=== PATIENT | female | born 1990 | race Caucasian/White ===

== ENCOUNTER 2021-08-21 07:16 | Emergency (ER) | payer OTHER ==
[2021-08-21] MEDS ORDERED: Ketorolac 15 MG/ML SDV IM ONE (07:35)
[2021-08-21] MEDS ORDERED: traMADol 50 MG Tab PO ONE (07:54)
--- NOTE | 2021-08-21 07:57 | EDM.PDOC ---
ED HPI GENERAL MEDICAL PROBLEM - General Chief Complaint: General Stated Complaint: LFT SHOULDER PAIN Time Seen by Provider: 08/21/21 07:34 - History of Present Illness INITIAL COMMENTS - FREE TEXT/NARRATIVE: CHIEF COMPLAINT(S): Neck pain HISTORY OF PRESENT ILLNESS: This is a 31-year-old woman without any significant past medical history who comes to the emergency department with a chief complaint of a neck pain. The patient states that for approximately 1 year she has been experiencing pain on the left side of her neck however it is not been exacerbated over the last 2 days. She states that she lifted heavy stuff and that may have exacerbated the pain. She states that the pain is located on the left side of her neck and next to her left shoulder blade. She states that it feels tight. She denies any neck injury or back injury. She states that she rates her pain as 10 out of 10 not associate with any numbness, tingling, weakness, bowel incontinence, urinary incontinence or saddle anesthesia. She states that she was seen in [place] for this and had multiple imaging which did not reveal any abnormalities of her neck and then was seen at [facility] and was given Flexeril and meloxicam all of which did not help. She states that she does not know what else to do. She denies any relieving factors and states that the pain is exacerbated by movement. REVIEW OF SYSTEMS: Constitutional: Denies fever, chills. Eyes: Denies eye pain Ears, Nose, Mouth, & Throat: Denies earache Cardiovascular: Denies chest pain Respiratory: Denies shortness of breath Gastrointestinal: Denies bowel incontinence, nausea, vomiting, diarrhea, hematochezia. Genitourinary: Denies hematuria, urinary incontinence Skin:Denies a rash MSK: Positive for left-sided neck and back pain Neurological: Denies blurred vision, numbness, tingling, weakness Psychiatric: Denies depression PAST MEDICAL HISTORY: As per history of present illness and as reviewed below otherwise noncontributory. SURGICAL HISTORY: As per history of present illness and as reviewed below otherwise noncontributory. SOCIAL HISTORY: As per history of present illness and as reviewed below otherwise noncontributory. FAMILY HISTORY: As per history of present illness and as reviewed below otherwise noncontributory. EXAMINATION OF ORGAN SYSTEMS/BODY AREAS: Constitutional: Blood pressure is 123/80, heart rate 92, respiratory rate 17 with an oxygen saturation of 100% on room air. Temperature 36.4 General: Young woman who does not appear to be in acute distress Psychiatric: Appropriate mood and affect. Eyes: No scleral icterus or conjunctival erythema ENMT: Moist mucous membranes. No pharyngeal erythema no stridor, drooling, trismus. Neck is supple and nontender. No neck masses. Cardiovascular: Regular, rate, and rhythm. No gallops, murmurs, or rubs. Respiratory: Lungs clear to auscultation bilaterally. No wheezes, rales, or rhonchi. Musculoskeletal: There is left paracervical muscle tenderness and left trapezius/scapular muscle tenderness. No midline cervical, thoracic, or lumbar tenderness Skin: No lesions or abrasions. Neurological: Alert, GCS 15 dictating machine mechanic strength was equal bilaterally. Sensation distally intact MEDICAL DECISION MAKING AND COURSE IN THE ED WITH INTERPRETATION/REVIEW OF DIAGNOSTIC STUDIES: This is a 31-year-old woman with a past medical history of what appears to be left-sided chronic neck pain who comes to the emergency department with acute exacerbation of her neck pain. At this time given that she has had outpatient imaging before I do not believe any further imaging is indicated given that there is no acute injury. There are no red flag symptoms. We will provide the patient with tramadol and Toradol here for pain relief and I did discuss symptomatic treatment at home. She was given strict return precautions. The patient was amenable to discharge and had no further questions DISPOSITION: The patient was discharged home in stable condition. The patient will follow up with pcp within 3-5 days CONDITION: fair PROCEDURES: None FINAL IMPRESSION(S)/DIAGNOSES: 1. Acute neck strain Dominguez Blevins M.D. left should/neck Pain Score (Numeric/FACES): 10 - Related Data Allergies Allergy/AdvReac Type Severity Reaction Status Date / Time No Known Allergies Allergy Verified 08/22/21 02:26 Home Meds: Home Meds Diclofenac Sodium 50 mg PO TID 08/21/21 [History] Metaxalone 800 mg PO TID 08/21/21 [History] traMADol HCl [Tramadol HCl] 50 mg PO TID PRN #9 tablet 08/21/21 [Rx] Lidocaine 5% [Lidoderm 5%] 1 patch TOP DAILY PRN #7 patch 08/22/21 [Rx] Past Medical History - Past Health History Medical/Surgical History: Denies Medical/Surgical History - Infectious Disease History Infectious Disease History: Reports: None Social & Family History - Family History Family Medical History: No Pertinent Family History - Tobacco Use Tobacco Use Status *Q: Former Tobacco User Used Tobacco, but Quit: Yes Month/Year Tobacco Last Used: 2004 - Caffeine Use Caffeine Use: Reports: Coffee - Recreational Drug Use Recreational Drug Use: No ED ROS GENERAL - Review of Systems Review Of Systems: See Below ED EXAM, GENERAL - Physical Exam Exam: See Below Course - Vital Signs Last Recorded V/S: Last Vital Signs Temp 36.4 C 08/21/21 08:02 Pulse 75 08/21/21 08:02 Resp 16 08/21/21 08:02 BP 118/70 08/21/21 08:02 Pulse Ox 99 08/21/21 08:02 - Orders/Labs/Meds Meds: Medications Discontinued Medications Generic Name Dose Route Start Last Admin Trade Name Freq PRN Reason Stop Dose Admin Ketorolac Tromethamine 30 mg 08/21/21 07:35 08/21/21 07:53 Ketorolac 15 Mg/Ml Sdv IM 08/21/21 07:36 30 mg ONETIME ONE Administration Tramadol HCl 50 mg 08/21/21 07:54 08/21/21 08:02 Tramadol 50 Mg Tab PO 08/21/21 07:55 50 mg ONETIME ONE Administration Departure - Departure Time of Disposition: 07:54 Disposition: Home, Self-Care 01 Condition: Fair Clinical Impression: Neck strain - Discharge Information *PRESCRIPTION DRUG MONITORING PROGRAM REVIEWED*: No *COPY OF PRESCRIPTION DRUG MONITORING REPORT IN PATIENT ROD: No Prescriptions: traMADol HCl [Tramadol HCl] 50 mg PO TID PRN #9 tablet PRN Reason: Pain (Severe 7-10) Instructions: Muscle Strain, [id number] Referrals: PCP,None [Primary Care Provider] - Forms: ED Department Discharge Additional Instructions: You were evaluated today on an emergent basis. At this time I do recommend you do the stretches that I provided you in your discharge information. I recommend use tramadol 3 times a day as needed for severe pain. Please heat the area 15 minutes every 3 hours as needed for relief. If you have continued pain I would like you to follow-up with your primary care physician for referral to a pain specialist. If you have any worsening symptoms such as weakness of 1 arm or the other and inability to grasp items, urinate on yourself, defecate on yourself or you are concerned please return to the emergency department. Please use: Tylenol 500-1000mg every 6 hours (DO NOT TAKE MORE THAN 4000mg in 1 day) Ibuprofen 400mg every 6 hours (Take with food as it can cause ulcers, GI upset) Example schedule: 8:00 AM (Tylenol 500-1000mg) 11:00 AM (Ibuprofen 400mg) 2:00 PM (Tylenol 500-1000mg) 5:00 PM (Ibuprofen 400mg) In addition to Tylenol and Motrin you may use over the counter creams such as Voltaren Cream or Lidocaine Cream (Lidoderm) as needed 4 times a day for symptomatic relief. heat/ Ice the area 15 minutes 4 times per day [facility] [address] [place] [address] [place] [address] The patient is informed of any results of their evaluation and diagnostic workup and all questions are answered. They are given discharge instructions and return precautions. The patient is stable for discharge. The patient states they understand and agree with the plan and that they will return if their symptoms get worse or if they have any new concerns. The following information is given to patients seen in the emergency department who are being discharged to home. This information is to outline your options for follow-up care. We provide all patients seen in our emergency department with a follow-up referral. The need for follow-up, as well as the timing and circumstances, are variable depending upon the specifics of your emergency department visit. If you don't have a primary care physician on staff, we will provide you with a referral. We always advise you to contact your personal physician following an emergency department visit to inform them of the circumstance of the visit and for follow-up with them and/or the need for any referrals to a consulting specialist. The emergency department will also refer you to a specialist when appropriate. This referral assures that you have the opportunity for follow-up care with a specialist. All of these measure are taken in an effort to provide you with optimal care, which includes your follow-up. Under all circumstances we always encourage you to contact your private physician who remains a resource for coordinating your care. When calling for follow-up care, please make the office aware that this follow-up is from your recent emergency room visit. If for any reason you are refused follow-up, please contact the [facility] Emergency Department at and asked to speak to the emergency department charge nurse. Sepsis Event Note (ED) - Evaluation Sepsis Screening Result: No Definite Risk
== END 2021-08-21 08:04 | disposition home or self-care (01) ==
LOC: MW.ED 07:16
DX: S16.1XXA Strain of muscle, fascia and tendon at neck level, initial encounter (principal); Z87.891 Personal history of nicotine dependence; X50.0XXA Overexertion from strenuous movement or load, initial encounter
CPT/HCPCS: 96372; 99283; A9270; J1885

== ENCOUNTER 2021-08-22 02:19 | Emergency (ER) | payer OTHER ==
[2021-08-22] MEDS ORDERED: fentaNYL 50 MCG/ML SDV IM ONE (02:42)
[2021-08-22] MEDS ORDERED: Lidocaine 5% 700 MG Patch TOP ONE (02:43)
[2021-08-22] MEDS ORDERED: Ondansetron 4 MG Tab.DIS PO ONE (02:43)
--- NOTE | 2021-08-22 02:49 | EDM.PDOC ---
ED HPI GENERAL MEDICAL PROBLEM - General Chief Complaint: Back Pain or Injury Stated Complaint: BACK/NECK PAIN Time Seen by Provider: 08/22/21 02:35 - History of Present Illness INITIAL COMMENTS - FREE TEXT/NARRATIVE: HISTORY AND PHYSICAL: History of present illness: This is a 31-year-old healthy female who presents ER today complaining of left side neck and shoulder pain that started approximately 1 year ago but has gotten worse over the last 2 weeks while working over at [employer]. Patient ports over the last couple days the pain is gotten much worse. Patient was seen and evaluated here in the ER earlier today and was given muscle relaxants and Ultram. Patient reports that the medication helped slightly but she has not been able to sleep in the morning yesterday. Patient reports that she has severe pain whenever she is at work. Patient denies any recent fevers, shakes, chills, nausea, vomiting, diarrhea, dysuria, frequency, urgency, chest pain, shortness of breath. Patient has any history of IVDA. Patient has any history of trauma. Patient reports that she has had pain in that area for approximately 1 year now but over the last couple days is gotten much worse. Patient reports that her mother has had similar symptoms in the past and it was secondary to a pinched nerve. Patient reports that she got episodes of tingling and numbness going down her left arm. Patient presents ER today requesting assistance with pain medicines as well as assistance with a work note. Review of systems: As per history of present illness and below otherwise all systems reviewed and negative. Past medical history: As per history of present illness and as reviewed below otherwise noncontributory. Surgical history: As per history of present illness and as reviewed below otherwise noncontributory. Social history: No reported history of drug abuse. Family history: As per history of present illness and as reviewed below otherwise noncontributory. Physical exam: This patient was seen and evaluated during the 2019 SARS-CoV-2 novel coronavirus pandemic period. Community viral transmission is ongoing at time of this encounter and the emergency department is operating under pandemic response procedures. Constitutional: Patient is oriented to person, place, and time. Appears well- developed and well-nourished. No distress. HEENT: Moist mucous membranes Head: Normocephalic and atraumatic Eyes: Right eye exhibits no discharge. Left eye exhibits no discharge. No scleral icterus Neck: Normal range of motion. No tracheal deviation present. Cardiovascular: Normal rate and regular rhythm. Pulmonary: Effort normal, no respiratory distress. Abdominal: No distention Musculoskeletal: Normal range of motion Neurologic: Alert and oriented to person, place and time. Skin: Good [place], warm and dry. Psychiatric: Normal mood and affect. Behavior is normal. Judgment and thought content normal. Nursing note and vital signs have been reviewed Patient is your physical exam is significant for tenderness to palpation to her left sternocleidomastoid muscle. Patient has some spasms that are palpable. Patient's neuro exam is normal. Patient is neurovascular intact. Patient has good capillary refill. Patient has good hand grasp bilaterally. Patient is good flexion and are equal bilaterally. Patient is good shoulder shrug. Patient's pain is reproducible with palpation as well as flexion or rotation of her neck. Diagnostics: Therapeutics: Lidoderm patch Fentanyl 50 mics IM Zofran Assessment and plan: 31-year-old female complaining of left-sided neck pain that is been chronic for 1 year but worse over the last couple days. Patient currently works at [employer] and reports she is in too much pain to go to work. Patient has been given prescriptions for medications during her prior visit here earlier today however she reports that have not been helping her very much. Patient was given a shot of fentanyl 50 mcg IM and a Lidoderm patch to assist her with getting rest tonight. Patient will be given a prescription for Lidoderm patches. Patient be instructed to continue the medications have been prescribed for her to make an appointment see your family doctor so they can order an outpatient MRI on her and appropriate referrals. Reassessment at the time of disposition demonstrates that the patient is in no acute distress. The patient has remained stable throughout the entire ED visit and is without objective evidence for acute process requiring urgent intervention or hospitalization. The patient is stable for discharge, counseling is provided as documented above, discussed symptomatic treatment and specific conditions for return. I have spoken with the patient/caregiver and discussed todays findings, in addition to providing specific details for the plan of care. Questions are answered and there is agreement with the plan. Definitive disposition and diagnosis as appropriate pending reevaluation and review of above. Posterior Neck Pain Score (Numeric/FACES): 10 - Related Data Allergies Allergy/AdvReac Type Severity Reaction Status Date / Time No Known Allergies Allergy Verified 08/22/21 02:26 Home Meds: Home Meds Diclofenac Sodium 50 mg PO TID 08/21/21 [History] Metaxalone 800 mg PO TID 08/21/21 [History] traMADol HCl [Tramadol HCl] 50 mg PO TID PRN #9 tablet 08/21/21 [Rx] Lidocaine 5% [Lidoderm 5%] 1 patch TOP DAILY PRN #7 patch 08/22/21 [Rx] Past Medical History - Past Health History Medical/Surgical History: Denies Medical/Surgical History - Infectious Disease History Infectious Disease History: Reports: None Social & Family History - Family History Family Medical History: No Pertinent Family History - Tobacco Use Tobacco Use Status *Q: Never Tobacco User - Caffeine Use Caffeine Use: Reports: None - Recreational Drug Use Recreational Drug Use: No ED ROS GENERAL - Review of Systems Review Of Systems: See Below ED EXAM, GENERAL - Physical Exam Exam: See Below Course - Vital Signs Last Recorded V/S: Last Vital Signs Temp 96.9 F 08/22/21 02:26 Pulse 87 08/22/21 02:26 Resp 18 08/22/21 02:26 BP 130/74 08/22/21 02:26 Pulse Ox 97 08/22/21 02:26 - Orders/Labs/Meds Orders: Active Orders 24 hr Category Date Time Status Lidocaine 5% [Lidoderm 5%] Med 08/22/21 02:43 Once 700 mg TOP ONETIME ONE Ondansetron [Zofran ODT] Med 08/22/21 02:43 Once 4 mg PO ONETIME ONE fentaNYL Med 08/22/21 02:42 Once 50 mcg IM ONETIME ONE Departure - Departure Time of Disposition: 02:47 Disposition: Home, Self-Care 01 Condition: Good Clinical Impression: Torticollis, acute, Neck pain on left side, Cervical radiculopathy - Discharge Information Instructions: Acute Torticollis, Adult, Cervical Radiculopathy Referrals: PCP,None [Primary Care Provider] - Additional Instructions: Your seen and evaluated in ER today secondary to pain in your neck. This may be secondary to muscle spasms or from herniated disks. In the ED you will be given a shot of fentanyl IM help you get some rest tonight as well as a lidocaine patch. You were given a prescription for lidocaine patch. Please take the medications that have been prescribed for you. Please make an appointment to see your family doctor so they can schedule an outpatient MRI of your neck for further evaluation and appropriate referrals. Please return to the ER if you develop any new or concerning symptoms. The following information is given to patients seen in the emergency department who are being discharged to home. This information is to outline your options for follow-up care. We provide all patients seen in our emergency department with a follow-up referral. The need for follow-up, as well as the timing and circumstances, are variable depending upon the specifics of your emergency department visit. If you don't have a primary care physician on staff, we will provide you with a referral. We always advise you to contact your personal physician following an emergency department visit to inform them of the circumstance of the visit and for follow-up with them and/or the need for any referrals to a consulting specialist. The emergency department will also refer you to a specialist when appropriate. This referral assures that you have the opportunity for follow-up care with a specialist. All of these measure are taken in an effort to provide you with optimal care, which includes your follow-up. Under all circumstances we always encourage you to contact your private physician who remains a resource for coordinating your care. When calling for follow-up care, please make the office aware that this follow-up is from your recent emergency room visit. If for any reason you are refused follow-up, please contact the [facility] Emergency Department at and asked to speak to the emergency department charge nurse. [facility] [address] [place] [id number] [facility] [address] [place] [id number] Sepsis Event Note (ED) - Focused Exam Vital Signs: Vital Signs Temp Pulse Resp BP Pulse Ox 08/22/21 02:26 96.9 F 87 18 130/74 97 - My Orders Last 24 Hours: My Active Orders 08/22/21 02:42 fentaNYL 50 mcg IM ONETIME ONE 08/22/21 02:43 Lidocaine 5% [Lidoderm 5%] 700 mg TOP ONETIME ONE Ondansetron [Zofran ODT] 4 mg PO ONETIME ONE - Assessment/Plan Last 24 Hours: My Active Orders 08/22/21 02:42 fentaNYL 50 mcg IM ONETIME ONE 08/22/21 02:43 Lidocaine 5% [Lidoderm 5%] 700 mg TOP ONETIME ONE Ondansetron [Zofran ODT] 4 mg PO ONETIME ONE
== END 2021-08-22 02:57 | disposition home or self-care (01) ==
LOC: MW.ED 02:19
DX: M43.6 Torticollis (principal); M54.12 Radiculopathy, cervical region
CPT/HCPCS: 96372; 99283; A9270; J3010

== ENCOUNTER 2024-04-03 08:07 | Emergency (ER) | payer BC, MEDICAID ==
[2024-04-03] MEDS ORDERED: Sodium Chloride 0.9% 2.5 ML Syringe FLUSH PRN (08:17)
[2024-04-03] MEDS ORDERED: Sodium Chloride 0.9% 10 ML Syringe FLUSH PRN (08:17)
[2024-04-03] MEDS ORDERED: Metoclopramide 10 MG/2 ML SDV IVPUSH ONE (08:17)
[2024-04-03] MEDS ORDERED: diphenhydrAMINE 50 MG/ML SDV IVPUSH ONE (08:17)
[2024-04-03] MEDS ORDERED: Sodium Chloride 0.9% 1,000 ML IV ONE (08:17)
[2024-04-03 08:28] LABS: BASOPHILS ABSOLUTE AUTO 0.03 K/uL (0.00-0.20); BASOPHILS PERCENT AUTO 0.2 % (0.0-1.0); EOSINOPHILS ABSOLUTE AUTO 0.02 K/uL (0.00-0.45); EOSINOPHILS PERCENT AUTO 0.2 % (0.0-6.0); HEMATOCRIT 35.8 % (37.0-47.0); HEMOGLOBIN 12.2 g/dL (12.0-16.0); IMMATURE GRAN ABSOLUTE AUTO 0.09 K/uL (0.00-0.05); IMMATURE GRAN PERCENT AUTO 0.7 % (0.0-0.4); LYMPHOCYTES ABSOLUTE AUTO 0.79 K/uL (1.00-4.80); MEAN CORPUSCULAR HEMOGLOBIN 31.6 pg (28.0-32.0); MEAN CORPUSCULAR HGB CONC 34.1 g/dL (32.0-36.0); MEAN CORPUSCULAR VOLUME 92.7 fL (83.0-99.0); MONOCYTES ABSOLUTE AUTO 1.14 K/uL (0.00-0.80); MONOCYTES PERCENT AUTO 8.6 % (0.0-8.0); NEUTROPHILS ABSOLUTE AUTO 11.17 K/uL (1.80-7.70); NEUTROPHILS PERCENT AUTO 84.3 % (41.0-71.0); PLATELET COUNT,PLT 159 K/uL (150-400); RED BLOOD CELL COUNT 3.86 M/uL (4.10-5.30); WHITE BLOOD CELL COUNT,WBC 13.24 K/uL (3.9-11.3)
[2024-04-03 08:50] LABS: A/G RATIO 0.7 (0.9-1.6); ALANINE AMINOTRANSFERASE,ALT 73 IU/L (14-63); ALBUMIN 2.8 g/dL (3.4-5.0); ALKALINE PHOSPHATASE 98 U/L (46-116); ASPARTATE AMNIOTRANSFERASE,AST 64 IU/L (15-37); BILIRUBIN TOTAL 0.3 mg/dL (0.2-1.0); BLOOD UREA NITROGEN,BUN 7 mg/dL (7.0-18.0); CALCIUM 8.3 mg/dL (8.5-10.1); CARBON DIOXIDE,CO2 23.7 mmol/L (21.0-32.0); CHLORIDE,CL 100 mmol/L (98-107); CREATININE 0.8 mg/dL (0.6-1.0); ESTIMATED GFR 98 mL/min (>60); GLUCOSE RANDOM 112 mg/dL (74-106); LIPASE 18 U/L (16-77); MAGNESIUM 1.7 mg/dL (1.8-2.4); POTASSIUM,K 3.6 mmol/L (3.5-5.1); PROTEIN TOTAL,TP 6.7 g/dL (6.4-8.2); SODIUM,NA 136 mmol/L (136-145)
== END 2024-04-03 08:35 | disposition still patient (30) ==
LOC: MW.ED 08:07
DX: O99.891 Other specified diseases and conditions complicating pregnancy (principal); R51.9 Headache, unspecified; R10.9 Unspecified abdominal pain; Z3A.24 24 weeks gestation of pregnancy
CPT/HCPCS: 36415; 80053; 83690; 83735; 85025; 99284; 99285

== ENCOUNTER 2024-04-03 08:32 | Observation (INO) | payer BC, MEDICAID ==
[2024-04-03 09:09] LABS: APPEARANCE,URINE CLOUDY; BILIRUBIN,URINE NEGATIVE (NEGATIVE); COLOR,URINE YELLOW; GLUCOSE,URINE NEGATIVE (NEGATIVE); KETONES,URINE NEGATIVE (NEGATIVE); LEUKOCYTE ESTERASE,URINE MODERATE (NEGATIVE); NITRITE,URINE POSITIVE (NEGATIVE); OCCULT BLOOD,URINE SMALL (NEGATIVE); PROTEIN,URINE TRACE mg/dL (NEGATIVE); UROBILINOGEN,URINE 0.2 EU/dL (<2.0)
[2024-04-03] MEDS: Lactated Ringers 1,000 ML IV ONE (09:10)
[2024-04-03 09:19] LABS: BACTERIA,URINE 4+ (NEGATIVE); EPITHELIAL CELLS,URINE FEW (NONE-FEW); WBC,URINE 40-50 (0-5/HPF)
[2024-04-03] MEDS ORDERED: Sodium Chloride 0.9% 2.5 ML Syringe FLUSH PRN (09:27)
[2024-04-03] MEDS ORDERED: Sodium Chloride 0.9% 20 ML SDV IV PRN (09:27)
[2024-04-03] MEDS ORDERED: Sodium Chloride 0.9% 10 ML Syringe FLUSH PRN (09:27)
[2024-04-03] MEDS: cefTRIAXone 1 GM in Sodium Chloride 0.9% 50 ML IV SCH (10:14)
[2024-04-03] MEDS: Lactated Ringers 1,000 ML IV SCH (10:17)
[2024-04-03] MEDS: Acetaminophen 1,000 MG in Premix Bag 1 BAG IV ONE (15:42)
[2024-04-04] MEDS: Acetaminophen 500 MG Tab PO PRN (01:12)
== END 2024-04-04 11:35 | disposition home or self-care (01) ==
LOC: MW.OBCHECK 08:32 → MW.OB 08:34 → MW.OBCHECK 09:27 → MW.OB 09:27
PROVIDERS: ADMIT Obstetrics & Gynecology; ATTEND Obstetrics & Gynecology
DX: O23.02 Infections of kidney in pregnancy, second trimester (principal); N12 Tubulo-interstitial nephritis, not specified as acute or chronic; Z3A.24 24 weeks gestation of pregnancy
CPT/HCPCS: 81001; A9270; J0131; J0696; J3490; J7120; 96365; 96375; G0378

== ENCOUNTER 2024-07-05 08:37 | Inpatient (IN) | payer BC ==
[2024-07-05] MEDS ORDERED: Misoprostol 200 MCG Tab PO PRN (11:05)
[2024-07-05] MEDS ORDERED: Sodium Chloride 0.9% 10 ML Syringe FLUSH PRN (11:05)
[2024-07-05] MEDS ORDERED: Sodium Chloride 0.9% 20 ML SDV IV PRN (11:05)
[2024-07-05] MEDS ORDERED: Sodium Chloride 0.9% 2.5 ML Syringe FLUSH PRN (11:05)
[2024-07-05] MEDS ORDERED: Ondansetron 4 MG Tab.DIS PO PRN (11:05)
[2024-07-05] MEDS ORDERED: Water For Irrigation,Sterile 1,000 ML Container IRR PRN (11:05)
[2024-07-05] MEDS ORDERED: Carboprost Tromethamine 250 MCG/1 mL Vial IM PRN (11:05)
[2024-07-05] MEDS ORDERED: Tranexamic Acid IN NACL,ISO-OS 1,000 MG in Premix Bag 1 BAG IV PRN (11:05)
[2024-07-05] MEDS ORDERED: Oxytocin/0.9 % Sodium Chloride 30 UNIT/500 ML BAG IV SCH (11:15)
[2024-07-05 11:23] LABS: HEMATOCRIT 33.8 % (37.0-47.0); HEMOGLOBIN 11.3 g/dL (12.0-16.0); MEAN CORPUSCULAR HEMOGLOBIN 29.8 pg (28.0-32.0); MEAN CORPUSCULAR HGB CONC 33.4 g/dL (32.0-36.0); MEAN CORPUSCULAR VOLUME 89.2 fL (83.0-99.0); MEAN PLATELET VOLUME 10.9 fL (9.4-12.3); PLATELET COUNT,PLT 184 K/uL (150-400); RED BLOOD CELL COUNT 3.79 M/uL (4.10-5.30); WHITE BLOOD CELL COUNT,WBC 10.99 K/uL (3.9-11.3)
[2024-07-05] MEDS ORDERED: Terbutaline 1 MG/ML SDV SUBCUT PRN (13:22)
[2024-07-05] MEDS ORDERED: Misoprostol 25 MCG (1/4 of 100 MCG) Tab VAG PRN ×2 (13:22)
[2024-07-05] MEDS: Oxytocin/0.9 % Sodium Chloride 30 UNIT/500 ML BAG IV SCH (13:38)
[2024-07-05] MEDS: Lactated Ringers 1,000 ML IV SCH (13:39)
[2024-07-05] MEDS: Butorphanol 2 MG/ML SDV IVPUSH PRN (19:25)
[2024-07-05] MEDS: Lidocaine 1% 50 ML MDV INJECT PRN (21:20)
[2024-07-05] MEDS: Methylergonovine 0.2 MG/1 ML Amp IM PRN (21:24)
[2024-07-05] MEDS ORDERED: Docusate Sodium 100 MG Cap PO PRN (22:51)
[2024-07-05] MEDS ORDERED: Lanolin 100% Cream 7 GM Tube TOP PRN (22:51)
[2024-07-05] MEDS: Acetaminophen 500 MG Tab PO PRN (23:07)
[2024-07-05] MEDS: Ibuprofen 800 MG Tab PO PRN (23:07)
[2024-07-05] MEDS: Benzocaine/Menthol 20%-0.5% Spray 78 GM Cannister TOP PRN (23:08)
[2024-07-05] MEDS: Witch Hazel Medicated Pads 40/Jar TOP PRN (23:08)
[2024-07-06 07:01] LABS: HEMATOCRIT 33.3 % (37.0-47.0); HEMOGLOBIN 11.1 g/dL (12.0-16.0); MEAN CORPUSCULAR HEMOGLOBIN 29.8 pg (28.0-32.0); MEAN CORPUSCULAR HGB CONC 33.3 g/dL (32.0-36.0); MEAN CORPUSCULAR VOLUME 89.5 fL (83.0-99.0); MEAN PLATELET VOLUME 11.1 fL (9.4-12.3); PLATELET COUNT,PLT 171 K/uL (150-400); RED BLOOD CELL COUNT 3.72 M/uL (4.10-5.30); WHITE BLOOD CELL COUNT,WBC 16.81 K/uL (3.9-11.3)
== END 2024-07-06 23:12 | disposition home or self-care (01) | DRG 560 ==
LOC: MW.OBCHECK 08:37 → MW.OB 08:39 → MW.OBCHECK 11:00 → MW.OB 11:05 → OBSVTOIN 21:15 → MW.OB 07-06 00:41
PROVIDERS: ADMIT Obstetrics & Gynecology; ATTEND Obstetrics & Gynecology
PROC: 10E0XZZ Delivery of Products of Conception, External Approach (ICD-10-PCS; principal; 2024-07-05)
PROC: 0KQM0ZZ Repair Perineum Muscle, Open Approach (ICD-10-PCS; 2024-07-05)
DX: O42.02 Full-term premature rupture of membranes, onset of labor within 24 hours of rupture (principal); Z37.0 Single live birth; Z3A.38 38 weeks gestation of pregnancy
CPT/HCPCS: 36415; 59025; 59409; 84112; 85027; 86592; 86850; 86900; 86901; A9270-GY; J0595; J2001; J2210; J2590; J7120